=== PATIENT | male | born 1935 | race Caucasian/White ===

== ENCOUNTER → 2023-01-03 | Outpatient (CLI) | payer MEDICARE | END | disposition home or self-care (01) | LOC: RADCTMAIN 12:25 | PROVIDERS: ATTEND Surgery | DX: I71.43 Infrarenal abdominal aortic aneurysm, without rupture (principal) | CPT/HCPCS: 82565; 84520 ==

== ENCOUNTER → 2023-01-11 | Outpatient (CLI) | payer MEDICARE ==
--- NOTE | 2023-01-14 05:27 | PE ---
EXAMINATION TYPE: PET CT fusion skull to thigh DATE OF EXAM: 01/11/2023 COMPARISON: Outside Chest CT December 25, 2022 HISTORY: Solitary pulmonary nodule, abnormal CT. TECHNIQUE: Following the intravenous administration of 10.52 mCi of F-18 FDG, whole body images are performed from the skull base to the midthigh. Images are reviewed on the computer in the coronal, a xial, and sagittal planes. Reconstructed rotating images are created on independent workstation and reviewed on the computer. A localization and attenuation correction CT is performed in conjunction with the PET scan. Blood glucose level equals 140. SCAN: Initial Scan FINDINGS: SKULL BASE AND NECK: No areas of abnormal hypermetabolic uptake. CHEST, MEDIASTINUM, AND HILAR REGION: Moderate underlying emphysematous change is redemonstrated. Per sistent lobulated mass in the posterior aspect right upper lobe measuring 3.6 x 2.5 cm. Max SUV is 4. 65 on axial image 80. No additional abnormal hypermetabolic nodules or lymph nodes. Calcified right lower lobe nodules are benign granulomas with calcified right hilar lymph nodes are redemonstrated. ABDOMEN AND PELVIS: No hypermetabolic adrenal masses. Normal excretion. No areas of abnormal hypermet abolic uptake. OSSEOUS STRUCTURES: No areas of abnormal hypermetabolic uptake. OTHER CT: Mild calcified plaque bilateral carotid bulb level. Coronary artery calcification and/or st ents are redemonstrated. Cholecystectomy clips are seen. Large AAA measuring up to 7.0 cm in diameter axial image 159 without iliac artery extension is noted. IMPRESSION: 1. Background moderate emphysematous change with abnormal hypermetabolic uptake in the posterior righ t upper lobe lobulated mass consistent with neoplasm. No abnormal thoracic adenopathy or metastatic d isease seen. 2. There is focal AAA up to 7.0 cm in diameter transversely. Advise endovascular surgical referral.
== END | disposition home or self-care (01) ==
LOC: RADPETMAIN 08:45
PROVIDERS: ATTEND Internal Medicine Critical Care Medicine
DX: J43.9 Emphysema, unspecified (principal); I71.40 Abdominal aortic aneurysm, without rupture, unspecified; R91.8 Other nonspecific abnormal finding of lung field
CPT/HCPCS: 78815; A9552

== ENCOUNTER → 2023-01-21 | Outpatient (CLI) | payer MEDICARE ==
--- NOTE | 2023-01-21 18:48 | MR ---
EXAMINATION TYPE: MR abdomen wo/w con DATE OF EXAM: 01/21/2023 3:58 PM INDICATION: Patient age:Male; 87 years old; Reason for study: I71.43 INFRARENAL ABDOMINAL AORTIC ANEURYSM; Evaluate Infra-renal AAA, Shortness of Breath COMPARISON: CT scan abdomen from PET/CT 01/11/2023. TECHNIQUE: Multiplanar multi-sequence imaging was performed without contrast. Post contrast imaging was performed. IV Contrast: 8 cc Gadavist FINDINGS: Motion limited exam. LOWER CHEST: No gross irregularity. ABDOMEN Liver: Unremarkable. Gallbladder and Bile ducts: Unremarkable. Pancreas: Unremarkable. Spleen: Unremarkable. Adrenal glands: Unremarkable. Kidneys: No evidence of obstructive uropathy. Right cortical renal cyst. Stomach and Bowel: Unremarkable as visualized. Peritoneum: No evidence of pneumoperitoneum or free fluid. Vasculature: There is an infrarenal aortic aneurysm measuring up to 7.2 x 6.4 x 5.4 cm with draping o nora the vertebral bodies. This is similar in size to prior 01/11/2023. There is mural thrombus present . This displaces the inferior vena cava bilaterally. Renal arteries are patent. The common iliac zaheer cherise and external iliac arteries are patent. Musculoskeletal: The osseous structures appear intact. Lymph Nodes: No gross evidence for lymphadenopathy. Abdominal wall: Unremarkable. IMPRESSION: Infrarenal saccular abdominal aortic aneurysm measuring up to 7.2 cm further workup with vascular deb denise consultation is recommended. This does appear to drape over the vertebral bodies which can be se en as a sign of contained rupture and aortic wall deficiency.
== END | disposition home or self-care (01) ==
LOC: RADMRIMAIN 15:08
PROVIDERS: ATTEND Surgery
DX: I71.43 Infrarenal abdominal aortic aneurysm, without rupture (principal)
CPT/HCPCS: 74183; A9585

== ENCOUNTER 2023-01-31 10:51 | Day surgery (SDC) | payer MEDICARE ==
[2023-01-29 11:26] VITALS: BMI 28.5
[~2023-01-31 10:51] MED LIST: LACTATED RINGERS 1,000 ML IV SCH
--- NOTE | 2023-01-31 12:13 | CT ---
EXAMINATION TYPE: CT chest wo con DATE OF EXAM: 01/31/2023 COMPARISON: Outside Chest CT December 25, 2022 and outside PET/CT January 11, 2023 HISTORY: ion chest CT DLP: 544 mGycm. Automated Exposure Control for Dose Reduction was Utilized. TECHNIQUE: CT scan of the thorax is performed without IV contrast. Bronchoscopy protocol. FINDINGS: Exam is for bronchoscopy planning and not for diagnostic purposes. There is bilateral moderate to adv anced underlying emphysematous change that is redemonstrated. There is persistent suspicious spiculat ed 4.4 x 2.5 cm mass in the posterior right upper lobe series 4 image 128. 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 IMPRESSION: As above.
[2023-01-31] MEDS ORDERED: PROPOFOL 10 MG/ML 20 ML VIAL IV ONE (12:14)
[2023-01-31] MEDS ORDERED: fentaNYL (PF) 50 MCG/ML 2 ML AMP ONE (12:14)
[2023-01-31] MEDS ORDERED: SUCCINYLCHOLINE CHLORIDE 200 MG/10 ML VIAL IV ONE (12:14)
[2023-01-31] MEDS ORDERED: GLYCOPYRROLATE 0.2 MG/ML 2 ML VIAL ONE (12:14)
[2023-01-31] MEDS ORDERED: LIDOCAINE 2% INJ 20 MG/ML (2 ML VIAL) ONE (12:14)
[2023-01-31] MEDS ORDERED: PHENYLEPHRINE-0.9% NACL SYG 1,000 MCG/10 ML SYRINGE ONE (12:14)
[2023-01-31] MEDS ORDERED: IV FLUID CONTINUATION 1,000 ML IV ONE (13:39)
[2023-01-31 13:47] VITALS: TEMP 97.3
--- NOTE | 2023-01-31 13:50 | P.PCN ---
Date of Procedure: 01/31/23 Description of Procedure: Preoperative Diagnosis: Right upper lobe mass Mediastinal lymphadenopathy Postoperative Diagnosis: Right upper lobe mass Left paratracheal lymphadenopathy Procedure(s) Performed: Flexible bronchoscopy Robotic-assisted bronchoscopy and addition to radial ultrasound evaluation of the lung mass Robotic-assisted test monitor needle aspirate, transbronchial biopsies, transbronchial brushing of the right upper lobe mass in addition to a bronchioloalveolar lavage Endobronchial ultrasound Endobronchial ultrasound-guided transbronchial needle aspirate of station 4 L lymph node Anesthesia: LIANAA Surgeon: Catarino Bains Estimated Blood Loss (ml): 0 Pathology: other Condition: stable Disposition: same day Operative Findings: A physical exam was performed. Informed consent was obtained from the patient after explaining all the risks (pneumothorax, life threatening bleeding, infection and adverse effects due to medications), benefits and alternatives to the procedure which the patient appeared to understand and so stated. The patient was connected to the monitoring devices. General anesthesia was induced and the patient was intubated by anesthesia. A final timeout was performed and the procedure confirmed by the attending staff bronchoscopist. The bronchoscope was inserted and the airway examined. The flexible bronchoscope was removed and the robotic bronchoscope was inserted. Registration was completed. I next guided the robotic bronchoscope using the navigation system into the right upper lobe posterior segment segment. Once in proper position, the bronchoscope was frozen. The radial EBUS probe was placed through the bronchoscope and confirmed abnormal u/s images vs normal lung. A needle was placed through the working channel and under fluoroscopic guidance, we sampled the area thought to have the mass twice. We then used a cloud biopsy pattern with ultrasound confirmation for 4 additional passes with the needle. U/S evaluation was then used to reconfirm location. Forceps were next introduced through working channel and extended the appropriate distance and 3 transbronchial biopsies were performed using fluoroscopic guidance. The u/s probe was then reinserted to confirm location. When confirmed this process was repeated for a total of 6 transbronchial biopsies. After reassessment with EBUS, a brush was placed through the extendable working channel for 1 pass with fluoroscopic guidance. U/S evaluation was then used to confirm location. 20ml of saline was then instilled into the area of the lesion. The robotic bronchoscope was removed and the airway inspected with a flexible bronchoscope and 5 ml of effluent from the BAL was collected. The flexible bronchoscope was removed and the EBUS-TBNA bronchoscope was used to intubate the pateint through the ETT. An ultrasound examination identified all major landmarks was completed.. No significant mediastinal lymphadenopathy. All of the mediastinal lymph nodes less than 5 mm in size. There was a station 4Lmediastinal lymph node measuring 9 x 6 mm in size. The EBUS-TBNA scope was used to evaluate mediastinal lymph node. A station 4 L lymph node was identified via ultrasound and the shortest diameter was measured to be 9x6 mm. The corresponding available CT scan measurement was compared to EBUS image. The needle was then inserted and 2 passes were taken under direct ultrasonographic visualization. Each pass was maintained with good suction. The patient was then extubated with the EBUS-TBNA bronchoscope and intubated with an Olympus IT bronchoscope without difficutly. The airways were inspected and cleared of secretions and blood. Fluoroscopic check for pneumothorax was negative upon completion of the procedure. There was 0 ml blood loss with the procedure. FINDINGS: 1.The airways appeared normal 2 Successful navigation, ultrasonographic identification, and biopsies of right lower lobe mass 3.The EBUS view was (Concentric/Eccentric)}. - Stations sampled: 4L - the rest of stations not sampled due to small size RECOMMENDATIONS: Await pathology and cytology results The referring physician will be alerted to the results when available. The patient was advised to follow up with the referring physician with the biopsy results Patient will be called with results.
--- NOTE | 2023-01-31 14:26 | XR ---
EXAMINATION TYPE: XR chest 1V DATE OF EXAM: 01/31/2023 COMPARISON: NONE HISTORY: A bronchoscopy TECHNIQUE: Single frontal view of the chest is obtained. 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 There is a calcified granuloma in the right midlung. There is a vag ue area of consolidation or mass in the right suprahilar region. There is underlying COPD. No sizable pneumothorax. Underlying COPD and chronic interstitial lung disease suspected. Heart size normal. At herosclerotic change aorta. IMPRESSION: 1. Right upper lobe pulmonary mass corresponds to previous CT abnormality. No pneumothorax. 2. 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
[2023-01-31 14:36] VITALS: RESP 18
[2023-01-31 14:55] VITALS: BP 109/71; PULSE 83
--- NOTE | 2023-01-31 15:35 | FL ---
EXAMINATION TYPE: FL bronchoscopy DATE OF EXAM: 01/31/2023 COMPARISON: NONE HISTORY: Fluoroscopy TECHNIQUE: Fluoroscopy. FINDINGS: Fluoroscopic guidance was provided during. Total dose area product (DAP) in uGy*m?, mGy*cm ? (or similar): 7.1241. IMPRESSION: As Above.
== END 2023-01-31 15:11 | disposition home or self-care (01) ==
LOC: ORWHC2ENDO 10:51
PROVIDERS: ATTEND Internal Medicine Critical Care Medicine
DX: J98.4 Other disorders of lung (principal); I10 Essential (primary) hypertension; J43.9 Emphysema, unspecified; I71.40 Abdominal aortic aneurysm, without rupture, unspecified; Z87.891 Personal history of nicotine dependence; Z79.1 Long term (current) use of non-steroidal anti-inflammatories (NSAID); Z79.899 Other long term (current) drug therapy; Z88.0 Allergy status to penicillin
CPT/HCPCS: 31623; 31652; 88108; 88305; 88173; 71045; 71250; 31629; 31624; J0330; J3010; J2370; J2704; J2001; 31625

== ENCOUNTER → 2023-03-06 | Outpatient (CLI) | payer MEDICARE ==
[2023-03-06 14:21] LABS: INR 1.1 (<1.2); Partial Thromboplastin Time 24.2 sec (22.0-30.0); Prothrombin Time 11.1 sec (9.0-12.0)
[2023-03-06 19:48] LABS: ALT 13 U/L (10-49); AST 14 U/L (14-35); Albumin 4.6 d/dL (3.8-4.9); Alkaline Phosphatase 86 U/L (41-126); BUN/Creat Ratio 11.89 Ratio (12.00-20.00); Blood Urea Nitrogen 22.6 mg/dL (9.0-27.0); Calcium 9.5 mg/dL (8.7-10.3); Carbon Dioxide 28.3 mmol/L (21.6-31.8); Chloride 92 mmol/L (96-109); Globulin 2.7 d/dL (1.6-3.3); Glucose 109 mg/dL (70-110); Potassium 4.4 mmol/L (3.5-5.5); Sodium 133 mmol/L (135-145); Total Bilirubin 0.4 mg/dL (0.3-1.2); Total Protein 7.3 d/dL (6.2-8.2)
[2023-03-07 00:29] LABS: Basophils # (A) 0.06 X 10*3/uL (0.00-0.10); Basophils % (A) 0.7 %; Eosinophils # (A) 0.39 X 10*3/uL (0.04-0.35); Eosinophils % (A) 4.4 %; HCT 41.6 % (39.6-50.0); HGB 13.5 d/dL (12.0-15.0); Lymphocytes # (A) 1.97 X 10*3/uL (0.90-5.00); Lymphocytes % (A) 22.4 %; MCH 29.5 pg (27.0-32.0); MCHC 32.5 d/dL (32.0-37.0); MCV 90.8 FL (80.0-97.0); Mean Platelet Volume 10.5 FL (9.5-12.2); Monocytes # (A) 0.53 X 10*3/uL (0.20-1.00); NRBC Per 100 WBC 0 X 10*3/uL (0.00-0.01); Neutrophils % (A) 66.2 %; Platelet Count 274 X 10*3/uL (140-440); RBC 4.58 X 10*6/uL (4.40-5.60); RDW 12.1 % (11.5-14.5); WBC 8.78 X 10*3/uL (4.50-10.00)
== END | disposition home or self-care (01) ==
LOC: LABWHC1 11:53
PROVIDERS: ATTEND Internal Medicine Critical Care Medicine
DX: Z01.812 Encounter for preprocedural laboratory examination (principal); I71.40 Abdominal aortic aneurysm, without rupture, unspecified
CPT/HCPCS: 36415; 80053; 85025; 85610; 85730

== ENCOUNTER → 2023-03-11 | Outpatient (CLI) | payer MEDICARE ==
--- NOTE | 2023-03-11 14:51 | CA ---
Transthoracic Echo Report Name: Abel Hurst Age: 87 Gender: M : 1935 Exam Date: 03/11/2023 13:51 Exam Location: [facility] Ht (in): 66 Wt (lb): 168 Ordering Physician: Catarino Bains MD Attending/Referring Phys: Spool Sorter Essie Carlton RDCS Procedure CPT: Indications: I71.40 Cardiac Hx: Technical Quality: Fair Contrast 1: Total Dose (mL): Contrast 2: Total Dose (mL): MEASUREMENTS (Male / Female) Normal Values 2D ECHO LV Diastolic Diameter PLAX 5.1 cm 4.2 - 5.9 / 3.9 - 5.3 cm LV Systolic Diameter PLAX 2.9 cm IVS Diastolic Thickness 1.1 cm 0.6 - 1.0 / 0.6 - 0.9 cm LVPW Diastolic Thickness 0.9 cm 0.6 - 1.0 / 0.6 - 0.9 cm LV Relative Wall Thickness 0.4 RV Internal Dim ED PLAX 3.3 cm LA Volume 40.3 cm??? 18 - 58 / 22 - 52 cm??? M-MODE Aortic Root Diameter MM 3.4 cm LA Systolic Diameter MM 4.0 cm LA Ao Ratio MM 1.2 AV Cusp Separation MM 2.0 cm DOPPLER AV Peak Velocity 144.5 cm/s AV Peak Gradient 8.4 mmHg AV Mean Velocity 88.3 cm/s AV Mean Gradient 3.9 mmHg AV Velocity Time Integral 25.2 cm AI Peak Velocity 460.9 cm/s AI Peak Gradient 85.0 mmHg LVOT Peak Velocity 95.0 cm/s LVOT Peak Gradient 3.6 mmHg LVOT Velocity Time Integral 16.6 cm MV Area PHT 2.7 cm??? Mitral E Point Velocity 42.9 cm/s Mitral A Point Velocity 75.6 cm/s Mitral E to A Ratio 0.6 MV Deceleration Time 283.3 ms TR Peak Velocity 232.2 cm/s TR Peak Gradient 21.6 mmHg Right Ventricular Systolic Press 25.6 mmHg FINDINGS Left Ventricle Mildly increased septal wall thickness. Left ventricular cavity size normal. Normal left ventricular systolic function with no obvious regional wall motion abnormalities. Left ventricular ejection fraction is estimated at 55-60 %. Right Ventricle Normal right ventricular size and function. Right ventricular systolic pressure within normal limits. Right Atrium Normal right atrial size. Left Atrium Normal left atrial size. Mitral Valve Structurally normal mitral valve. Mild mitral regurgitation. Aortic Valve Trileaflet aortic valve. No aortic stenosis. Mild aortic regurgitation. Tricuspid Valve Structurally normal tricuspid valve. Mild tricuspid regurgitation. Pulmonic Valve Trace pulmonic regurgitation. Pericardium No pericardial effusion. Aorta Normal size aortic root and proximal ascending aorta. CONCLUSIONS Left ventricular ejection fraction 55-60% Mildly increased left ventricular wall thickness RVSP 25 Mild mitral regurgitation Mild aortic regurgitation No pericardial effusion Previewed by: Dr. Lucho Carlson DO (Electronically Signed) Final Date: 11 March 2023 14:50
== END | disposition home or self-care (01) ==
LOC: RADECHMAIN 13:46
PROVIDERS: ATTEND Internal Medicine Critical Care Medicine
DX: I08.0 Rheumatic disorders of both mitral and aortic valves (principal); I71.40 Abdominal aortic aneurysm, without rupture, unspecified
CPT/HCPCS: 93306

== ENCOUNTER 2023-03-18 09:10 | Inpatient (IN) | payer MEDICARE ==
[2023-03-14 12:02] VITALS: BMI 27.4
[~2023-03-18 09:10] MED LIST changes: +CLINDAMYCIN 900 MG in DEXTROSE 5% IN WATER 50 ML IVPB PRN; +DEXAMETHASONE SOD PHOSPHATE 4 MG/ML 1 ML VIAL IV ONE; +HYDROmorphone 0.5 MG/0.5 ML SYRINGE IVP PRN; -LACTATED RINGERS 1,000 ML IV SCH; +MIDAZOLAM 2 MG/2 ML VIAL IV PRN; +ONDANSETRON 4 MG/2 ML VIAL IVP ONE; +SODIUM CHLORIDE 0.9% 1,000 ML in EMPTY BAG 1 BAG IV ONE
[2023-03-18] MEDS ORDERED: LIDOCAINE 1% INJ 10MG/ML (20 ML MDV) ONE (10:30)
[2023-03-18] MEDS ORDERED: PHENYLEPHRINE-0.9% NACL SYG 1,000 MCG/10 ML SYRINGE ONE (10:58)
[2023-03-18] MEDS ORDERED: SUGAMMADEX SODIUM 200 MG/2 ML SDV IV ONE (10:58)
[2023-03-18] MEDS ORDERED: HEPARIN SODIUM,PORCINE 10,000 UNIT/ML 1 ML VIAL ONE (10:58)
[2023-03-18] MEDS ORDERED: ROCURONIUM 10 MG/ML (5 ML VIAL) IV ONE (10:58)
[2023-03-18] MEDS ORDERED: ePHEDrine 50 MG/ML 1 ML VIAL ONE (10:58)
[2023-03-18] MEDS ORDERED: PROTAMINE SULFATE 10 MG/ML 5 ML VIAL IV ONE ×2 (10:58→13:03)
[2023-03-18] MEDS ORDERED: PROPOFOL 10 MG/ML 20 ML VIAL IV ONE (10:58)
[2023-03-18] MEDS ORDERED: fentaNYL (PF) 50 MCG/ML 2 ML AMP ONE (10:58)
[2023-03-18] MEDS ORDERED: NALOXONE 0.4 MG/ML 1 ML VIAL IVP PRN (13:08)
--- NOTE | 2023-03-18 13:08 | P.OP ---
Description of Procedure: Date: 03-18-2023 Preoperative diagnosis: Asymptomatic Infrarenal 7.2 cm AAA Postoperative diagnosis: Same Procedure: 1. Percutaneous Endovascular aortic repair with [place] device. 2. Ultrasound-guided bilateral common femoral artery access 3. Intravascular ultrasound of the aorta, bilateral common iliac, inte rnal and external iliac arteries Surgeon: Yamini GUTHRIE Anesthesia: General Estimated blood loss: 30 mL Complications: None Condition: Stable Indications: 87-year-old gentleman who originally presented to the office secondary to large infrarenal saccular AAA we will also was recently diagnosed with lung cancer. He is currently being treated for his lung cancer with chemotherapy and after discussion with his track repair person oncologist as well as the patient and his family it was felt to be prudent to repair his saccular aneurysm. He presents today for such repair. Operative narrative: After written and informed consent was obtained from the patient all risks benefits and complications were described the patient was brought to the Medical Laboratory Manager and laid in a supine position. The area of the groins were prepped and draped in usual sterile fashion after appropriate anesthetic was performed per the anesthesiologist. A timeout was performed in normal fashion and antibiotics were administered prior to incisions. Utilizing ultrasound bilateral common femoral arteries were visualized demonstrating patency with minimal calcification. Under ultrasound guidance utilizing a multipurpose needle bilateral common femoral arteries were accessed and guidewire was placed followed by deployment of 2 Perclose closure devices for each femoral artery. Utilizing Seldinger technique and 8-Burkinan sheath was then placed and patient was administered heparin and followed with ACTs. 035 Glidewire was then placed up the right femoral sheath and exchanged for a Lunderquist wire through an angled glide catheter. The left femoral artery was then utilized and guidewire was placed followed by pigtail catheter and aortogram was obtained. An IVUS catheter was then placed due to his significant renal disease in order to use less contrast. The IVUS was placed up the right sheath and intravascular images were obtained with measurements documented in the chart. Once completed a main body was chosen. Utilizing the Lunderquist wire a 29 mm main body device was then loaded over the guidewire after the 8- Burkinan sheath was removed. Delivery system was then placed 1 cm proximal to the intended landing site and the aortic body was oriented for appropriate access for the contralateral limb. Delivery system was then retracted out of the sheath and the aortic body radiopaque markers were verified to be in the correct position. First segment of the graft was then deployed in normal fashion by releasing and pulling the knob in normal fashion. Balloon injection port was then inflated utilizing a 4-1 saline contrast mixture in order to open the mid crown. Balloon was then deflated. Precise positioning was then performed with utilizing the radiopaque markers and parallax was removed and our to land at the renal arteries. Pigtail catheter was then retracted away from the proximal stent and the proximal stent was released in normal fashion. Polymer was then utilized and filled through the polymer port which was visualized under fluoroscopy. The stiff Lunderquist wire was then retracted within the ipsilateral limb. Attention was then placed to accessing the contralateral limb. Utilizing the Glidewire and angled glide catheter the contralateral limb was accessed and pigtail catheter was placed. Pigtail catheter was then spun to verify intragraft cannulation. A stiff wire was then placed within the pigtail catheter and retrograde angiogram was obtained demonstrating the internal iliac artery takeoff. Measurements were obtained and a 12 x 140 mm Ovation limb was chosen to be deployed and deployed in normal fashion. Once completed the aortic main body was completely deployed in normal fashion. Utilizing the balloon balloon angioplasty was performed at the ring to further mold the polymer to the aortic neck. Once completed the aortic body deployment sheath was removed in normal fashion. Pigtail catheter was then placed over the Lunderquist wire and retrograde angiogram was obtained with measurements to the internal iliac artery on the ipsilateral limb. A 12 x 160 mm Ovation limb was chosen and deployed in normal fashion. Once completed two 12 x 40mm balloons were placed up each iliac limb and balloon angioplasty was performed through its entirety. Once completed balloons were removed and pigtail catheter was placed above the graft and final angiogram was obtained demonstrating exclusion of the aneurysm with no evidence of endoleak's. All guidewires and catheters were then removed and the Perclose closure devices were closed in normal fashion. The areas were then cleansed and dressings were placed. The patient tolerated procedure well and had palpable DP pulses and was sent to PACU for recovery.
[2023-03-18] MEDS ORDERED: SODIUM CHLORIDE 0.9% 1,000 ML IV ONE ×4 (13:19→14:44)
[2023-03-18 13:48] LABS: Basophils % (A) 0 %; Eosinophils # (A) 0.4 k/uL (0-0.7); Eosinophils % (A) 6 %; HCT 35.9 % (39.0-53.0); HGB 12.4 gm/dL (13.0-17.5); Lymphocytes # (A) 1.1 k/uL (1.0-4.8); Lymphocytes % (A) 16 %; MCHC 34.5 g/dL (31.0-37.0); MCV 89.6 fL (80.0-100.0); Mean Platelet Volume 7.6; Monocytes # (A) 0.4 k/uL (0-1.0); Monocytes % (A) 5 %; Neutrophils % (A) 71 %; Platelet Count 220 k/uL (150-450); RBC 4.01 m/uL (4.30-5.90); RDW 12.1 % (11.5-15.5); WBC 6.9 k/uL (3.8-10.6)
[2023-03-18 13:58] LABS: African American GFR (CKD) 39 (>60 ml/min/1.73 sqM); Anion Gap 9 mmol/L; Blood Urea Nitrogen 26 mg/dL (9-20); Calcium 8.5 mg/dL (8.4-10.2); Carbon Dioxide 23 mmol/L (22-30); Chloride 103 mmol/L (98-107); Glucose 106 mg/dL (74-99); Non-African American GFR(CKD) 34 (>60 ml/min/1.73 sqM); Potassium 3.7 mmol/L (3.5-5.1); Sodium 135 mmol/L (137-145)
[2023-03-18 14:15] LABS: Glucose,Whole Blood 102 mg/dL (70-110)
[2023-03-18] MEDS: SODIUM CHLORIDE 0.9% 1,000 ML in EMPTY BAG 1 BAG IV SCH (15:29)
[2023-03-18] MEDS: LACTATED RINGERS 1,000 ML IV SCH (15:29)
[2023-03-18] MEDS ORDERED: PANTOPRAZOLE 40 MG/10 ML VIAL IVP ONE (17:42)
[2023-03-18] MEDS: CALCIUM CARBONATE 500 MG CHEWABLE PO PRN (21:58)
--- NOTE | 2023-03-18 22:44 | IR ---
EXAMINATION TYPE: IR stent intravas non coronary DATE OF EXAM: 03/18/2023 CLINICAL HISTORY: AAA. TECHNIQUE: Fluoroscopy. COMPARISON: None. FINDINGS: Fluoroscopic guidance was provided during AAA treatment procedure performed by Dr. Kc . A total of 20 minutes 30 seconds of fluoroscopic time was utilized during the procedure and 1272 s pot images was acquired. Please refer to procedure note for further details. TOTAL DAP = 35.3 Gy x cm2 IMPRESSION: As Above.
[2023-03-19] MEDS: CALCIUM CARBONATE 500 MG CHEWABLE PO PRN ×2 (05:10→11:30)
[2023-03-19] MEDS ORDERED: PANTOPRAZOLE 40 MG TABLET PO SCH (07:30)
[2023-03-19 08:24] LABS: African American GFR (CKD) 45 (>60 ml/min/1.73 sqM); Non-African American GFR(CKD) 39 (>60 ml/min/1.73 sqM)
[2023-03-19] MEDS ORDERED: ONDANSETRON 4 MG/2 ML VIAL IVP PRN (08:35)
[2023-03-19] MEDS: ASPIRIN 81 MG PO SCH (08:57)
[2023-03-19] MEDS: LOSARTAN 25 MG TAB PO SCH (08:57)
[2023-03-19] MEDS: SODIUM CHLORIDE 0.9% 1,000 ML in EMPTY BAG 1 BAG IV SCH ×2 (08:57→14:38)
[2023-03-19 09:20] LABS: HCT 35.9 % (39.0-53.0); MCH 29.8 pg (25.0-35.0); MCHC 33.3 g/dL (31.0-37.0); MCV 89.3 fL (80.0-100.0); Mean Platelet Volume 7.8; Platelet Count 205 k/uL (150-450); RBC 4.02 m/uL (4.30-5.90); RDW 12.5 % (11.5-15.5); WBC 10.4 k/uL (3.8-10.6)
[2023-03-19] MEDS: LACTATED RINGERS 1,000 ML IV SCH (10:12)
--- NOTE | 2023-03-19 12:08 | P.PN ---
Subjective Progress Note Date: 03/19/23 Principal diagnosis: Abdominal aortic aneurysm post EVAR Patient seen and examined today is postop day #1 for percutaneous endovascular aortic aneurysm repair. Patient is stating that time he is having a lot of heartburn which is causing some nausea. He only ate a few bites of dinner last night and then he had significant heartburn. He is without any other complaints. No shortness of breath or chest pain. Patient is afebrile. He states he is passing gas but has not had a bowel movement. Objective - Vital Signs Vital signs: Vital Signs Temp 97.5 F L 03/19/23 08:55 Pulse 80 03/19/23 08:55 Resp 15 03/19/23 08:55 BP 125/71 03/19/23 08:55 Pulse Ox 100 03/19/23 08:55 FiO2 Intake & Output 03/18/23 03/19/23 03/19/23 18:59 06:59 18:59 Intake Total 2115 Output Total 700 Balance 2115 -700 Weight 72 kg Intake: IV 1225 Intake, IV Titration 240 Amount Sodium Chloride 0.9% 1, 240 000 ml In Empty Bag 1 bag @ 80 mls/hr IV .[id number] [facility] Rx#:[id number] Oral 650 Output: Urine 700 Other: Voiding Method Urinal # Voids 2 - Exam General appearance: The patient is alert, oriented, appears in no acute distress. HET: Head is normocephalic and atraumatic. Pupils are equal and reactive. Neck: Supple. Heart: Regular. Lungs: Equal expansion, normal respiratory effort. Abdomen: Soft, nontender, nondistended. Extremities: Normal skin color and turgor. Bilateral groins without any hematoma, no bleeding from access site. Bilateral palpable DP pulses. Neurological: No focal deficits. Strength and sensation are grossly intact. - Labs CBC & Chem 7: 03/19/23 07:41 03/19/23 07:41 Labs: Abnormal Lab Results - Last 24 Hours (Table) 03/18/23 03/18/23 03/19/23 Range/Units 13:35 13:35 07:41 RBC 4.01 L (4.30-5.90) m/uL Hgb 12.4 L (13.0-17.5) gm/dL Hct 35.9 L (39.0-53.0) % Sodium 135 L (137-145) mmol/L BUN 26 H (9-20) mg/dL Creatinine 1.80 H 1.60 H (0.66-1.25) mg/dL Glucose 106 H (74-99) mg/dL Assessment and Plan Assessment: 1. Asymptomatic infrarenal 7.2 cm abdominal aortic aneurysm status post percutaneous endovascular aortic repair 2. Lung cancer 3. COPD Plan: 1. Encourage ambulation 2. Increase Protonix to 40 mg twice a day 3. Zofran added as needed 4. Continue Tums as needed 5. Internal medicine consulted for medical management 6. Anticipate discharge in the next 24-48 hours The impression and plan of care has been dictated as directed. I performed a history and examination of this patient, discussed the same with the dictator. I agree with the dictator's note ,documented as a scribe. Any additional findings or plans will be noted.
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
[2023-03-19] MEDS ORDERED: ACETAMINOPHEN TAB 325 MG TAB PO PRN (14:28)
--- NOTE | 2023-03-19 16:00 | US ---
EXAMINATION TYPE: US kidneys/renal and bladder DATE OF EXAM: 03/19/2023 COMPARISON: NONE CLINICAL INDICATION: Male, 87 years old with history of Laila; LAILA EXAM MEASUREMENTS: Right Kidney: 9.8 x 4.3 x 4.2 cm Left Kidney: 10.7 x 4.8 x 4.9 cm Right Kidney: no evidence of hydronephrosis Left Kidney: no evidence of hydronephrosis Bladder: wnl Bilateral Jets seen: no There is no evidence for hydronephrosis at this point in time. No nephrolithiasis is seen. No joe s are identified. The urinary bladder is anechoic. Bilateral ureteral jets are seen. Cortical medul tray differentiation is felt to be maintained. IMPRESSION: No evidence for obstructive uropathy. Cortical medullary differentiation is felt to be maintained.
[2023-03-19] MEDS: PANTOPRAZOLE 40 MG TABLET PO SCH (17:15)
[2023-03-20] MEDS: PANTOPRAZOLE 40 MG TABLET PO SCH (06:22)
[2023-03-20] MEDS: SODIUM CHLORIDE 0.9% 1,000 ML in EMPTY BAG 1 BAG IV SCH (07:36)
[2023-03-20] MEDS: LACTATED RINGERS 1,000 ML IV SCH (07:36)
[2023-03-20 08:12] VITALS: RESP 18; TEMP 98.1
[2023-03-20] MEDS: ASPIRIN 81 MG PO SCH (08:12)
[2023-03-20] MEDS: LOSARTAN 25 MG TAB PO SCH (08:12)
--- NOTE | 2023-03-20 11:54 | P.DS ---
Providers Date of admission: 03/18/23 09:10 Expected date of discharge: 03/20/23 Attending physician: Anthony Kc DO Consults: 03/18/23 07:09 Consult to Anesthesia Routine Consulting Provider: Anesthesia,Services Consult Reason/Comments: General anesthesia for Aortic Stent procedure 03/18/23 13:11 Consult Physician Routine Consulting Provider: Tom Conde Consult Reason/Comments: medical management Do you want consulting provider notified?: Yes 03/19/23 11:33 Consult Physician Routine Consulting Provider: Mary Khan Consult Reason/Comments: medical management post EVAR Do you want consulting provider notified?: Yes Primary care physician: Tom [facility] Course: 87-year-old male who was recently diagnosed with lung cancer and found to have a large infrarenal saccular abdominal aortic aneurysm was scheduled for abdominal aortic aneurysm repair. He is postop day #2 for percutaneous endovascular aortic repair. Patient has been up ambulating, Brandt catheter was discontinued he is voiding without any difficulty. He is passing gas. The first day postop he had some acid reflux but that has resolved and he is tolerating his diet. Vital signs have been stable, he has been afebrile. Medical team following patient and recommended holding his losartan due to kidney function. Patient has underlying chronic kidney disease. Plan is for discharge this afternoon. Exam General appearance: The patient is alert, oriented, appears in no acute distress. HET: Head is normocephalic and atraumatic. Pupils are equal and reactive. Neck: Supple. Heart: Regular. Lungs: Equal expansion, normal respiratory effort. Abdomen: Soft, nontender, nondistended. Extremities: Normal skin color and turgor. Bilateral groins access sites without any hematoma or bleeding. Palpable bilateral DP pulses. Neurological: No focal deficits. Strength and sensation are grossly intact. Assessment 1. Postop day #2 percutaneous endovascular aortic repair with alto device for Asymptomatic infrarenal 7.2 cm AAA 2. Lung cancer 3. COPD Plan Discussed with patient plan for discharge this afternoon. Patient has home care set up from the office. Continue to encourage ambulation. Primary medical team recommending holding losartan. Patient to follow-up with his PCP Dr. Conde in the next 1-2 days. Discharge instructions discussed with patient. The impression and plan of care has been dictated as directed. Dr. Brandt I performed a history and examination of this patient, discussed the same with the dictator. I agree with the dictator's note ,documented as a scribe. Any additional findings or plans will be noted. Procedures: Procedure: 1. Percutaneous Endovascular aortic repair with Valliant device. 2. Ultrasound-guided bilateral common femoral artery access 3. Intravascular ultrasound of the aorta, bilateral common iliac, internal and external iliac arteries Patient Condition at Discharge: Stable Plan - Discharge Summary Discharge Rx Participant: No New Discharge Prescriptions: New Aspirin 81 mg PO DAILY tab Acetaminophen Tab [Tylenol] 650 mg PO Q6HR PRN tab PRN Reason: Fever And/ Or Pain Continue Celecoxib [CeleBREX] 200 mg PO DAILY No Action Losartan [Cozaar] 25 mg PO QAM Discharge Medication List Celecoxib [CeleBREX] 200 mg PO DAILY 01/29/23 [History] Losartan [Cozaar] 25 mg PO QAM 01/29/23 [History] Acetaminophen Tab [Tylenol] 650 mg PO Q6HR PRN tab 03/20/23 [Rx] Aspirin 81 mg PO DAILY tab 03/20/23 [Rx] Follow up Appointment(s)/Referral(s): Anthony Kc DO [STAFF PHYSICIAN] - 2 Weeks Tom Conde DO [Primary Care Provider] - 1-2 Days (discuss resuming losartan and recheck kidney function) Patient Instructions/Handouts: Endovascular Aneurysm Repair of Abdominal Aorta (DC) Activity/Diet/Wound Care/Special Instructions: No strenuous activity or heavy lifting greater than 5-10 pounds until cleared by vascular surgeon May showerno soaking or tub baths Monitor access sites for bleeding, hematoma, drainage. If having bleeding, apply pressure call vascular office or go to the emergency room. Monitor for infection, temperature greater than 100.4. Do not drive for 24-48 hours Discharge Disposition: HOME WITH HOME HEALTH SERVICES
[2023-03-20 12:44] VITALS: BP 114/59; PULSE 90
--- NOTE | 2023-03-20 13:04 | P.PN ---
Subjective Progress Note Date: 03/20/23 This is an 87 year old male who is evaluated today postoperative day #2 endovascular repair of abdominal aortic aneurysm. Patients creatinine elevated this admission at 1.9 and currently down to 1.6. Blood pressure has been on the lower side at 114/59 and recommending to hold losartan on discharge. This was discussed with and patient at the bedside. recommending to monitor blood pressure at home and also follow up with labs in 2 to 3 days. Patient has been urinating without difficulty and abdominal bladder US negative for obstructive uropathy. Patient to be discharged home. Review of Systems Constitutional: Denied any fatigue denied any fever. Cardio vascular: denied any chest pain, palpitations Gastrointestinal: denied any nausea, vomiting, diarrhea Pulmonary: Denied any shortness of breath cough Neurologic denied any new focal deficits All inpatient medications were reviewed and appropriate changes in these medications as dictated in the interval history and assessment and plan. PHYSICAL EXAMINATION: GENERAL: The patient is alert and oriented x3, not in any acute distress. Well developed, well nourished. HEENT: Pupils are round and equally reacting to light. EOMI. No scleral icterus. No conjunctival pallor. Normocephalic, atraumatic. No pharyngeal erythema. No thyromegaly. CARDIOVASCULAR: S1 and S2 present. No murmurs, rubs, or gallops. PULMONARY: Chest is clear to auscultation, no wheezing or crackles. ABDOMEN: Soft, nontender, nondistended, normoactive bowel sounds. No palpable organomegaly. Bilateral groin site no hematoma, they are soft and approximated. MUSCULOSKELETAL: No joint swelling or deformity. EXTREMITIES: No cyanosis, clubbing, or pedal edema. Positive pedal pulses. NEUROLOGICAL: Gross neurological examination did not reveal any focal deficits. SKIN: No rashes. Assessment Aortic aneurysm status post for percutaneous endovascular aortic aneurysm repair. Hypertension currently normotensive Acute kidney injury underlying CKD, prerenal due to low blood pressures and medication affect patient has been maintained on losartan o.p and recommending to hold at this time. History right lung cancer completed radiation Hx COPD with no acute exacerbation Former smoker GI prophylaxis DVT prophylaxis as per primary Full Code Plan Cleared medically for DC patient to follow up with PCP in the office in 1 to 2 days and repeat labs. Follow up with vascular surgery as recommended. Hold losartan on discharge and monitor at home daily and keep log for follow up with PCP. Per vascular surgery no strenuous activity or heavy lifting greater than 5 to 10 lbs until cleared on follow up. No driving 24 to 48 hours. The impression and plan of care has been dictated by Elizabeth Pa, Nurse Practitioner as directed. Dr. Pankaj MD I have performed a history and physical examination and medical decision making of this patient, discussed the same with the dictator, and agree with the dictators assessment and plan as written, documented as a scribe. Based on total visit time, I have performed more than 50% of this visit. Objective - Vital Signs Vital signs: Vital Signs Temp 98.1 F 03/20/23 08:11 Pulse 90 03/20/23 12:43 Resp 18 03/20/23 08:11 BP 114/59 03/20/23 12:43 Pulse Ox 95 03/20/23 12:43 FiO2 Intake & Output 03/19/23 03/20/23 03/20/23 18:59 06:59 18:59 Intake Total 118 540 118 Output Total 700 600 347 Balance -582 -60 -229 Intake: Oral 118 540 118 Output: Urine 700 600 300 Post Void Residual 47 Other: Voiding Method Urinal Urinal Urinal # Voids 2 1 - Labs CBC & Chem 7: 03/19/23 07:41 03/19/23 07:41 Assessment and Plan Time with Patient: Less than 30
== END 2023-03-20 13:24 | disposition home health service (06) | DRG 269 ==
LOC: 2ORMAIN 09:10 → 3SCARD 14:16
PROVIDERS: ADMIT Surgery; ATTEND Surgery
PROC: DB0 Radiation Therapy, Respiratory System, Beam Radiation (ICD-10-PCS; 2023-03-18)
PROC: 04V03DZ Restriction of Abdominal Aorta with Intraluminal Device, Percutaneous Approach (ICD-10-PCS; principal; 2023-03-18 11:00)
PROC: B41DZZZ Fluoroscopy of Aorta and Bilateral Lower Extremity Arteries (ICD-10-PCS; 2023-03-18 11:00)
PROC: B24BZZ3 Ultrasonography of Heart with Aorta, Intravascular (ICD-10-PCS; 2023-03-18 11:00)
DX: I71.40 Abdominal aortic aneurysm, without rupture, unspecified (principal); C34.91 Malignant neoplasm of unspecified part of right bronchus or lung; N17.9 Acute kidney failure, unspecified; J44.9 Chronic obstructive pulmonary disease, unspecified; I12.9 Hypertensive chronic kidney disease with stage 1 through stage 4 chronic kidney disease, or unspecified chronic kidney disease; N18.9 Chronic kidney disease, unspecified; H91.90 Unspecified hearing loss, unspecified ear; K21.9 Gastro-esophageal reflux disease without esophagitis; R11.0 Nausea; R03.1 Nonspecific low blood-pressure reading; Z87.891 Personal history of nicotine dependence; Z79.1 Long term (current) use of non-steroidal anti-inflammatories (NSAID); Z88.0 Allergy status to penicillin; Z80.9 Family history of malignant neoplasm, unspecified
CPT/HCPCS: 34705; 37252; 37253; 76770; 77373; 80048; 82565; 85025; 85027; 86850; 86900; 86901

== ENCOUNTER → 2023-04-17 | Outpatient (CLI) | payer MEDICARE ==
[2023-04-17 15:08] LABS: African American GFR (CKD) 37 (>60 ml/min/1.73 sqM); Blood Urea Nitrogen 20 mg/dL (9-20); Non-African American GFR(CKD) 32 (>60 ml/min/1.73 sqM)
== END | disposition home or self-care (01) ==
LOC: RADCTMAIN 14:12
PROVIDERS: ATTEND Surgery
DX: Z53.9 Procedure and treatment not carried out, unspecified reason (principal)
CPT/HCPCS: 82565; 84520

== ENCOUNTER → 2023-05-09 | Outpatient (CLI) | payer MEDICARE ==
--- NOTE | 2023-05-10 10:23 | CT ---
EXAMINATION TYPE: CT angio abdomen pelvis CT DLP: 768.8 mGycm, Automated exposure control for dose reduction was used. DATE OF EXAM: 05/09/2023 4:56 PM COMPARISON: Pet/CT 01/11/2023, CT 01/31/2023 CLINICAL INDICATION:Male, 87 years old with history of I71.4 AAA;, AAA TECHNIQUE: Multiple thin slice sub-millimeter images were obtained through the abdomen, pelvis, after administration of contrast. 3-D reconstructed images and maximum intensity projection images were o btained of the abdomen, pelvis, and lower extremities. CT Contrast: Contrast used:80ml mL of Isovue 370 without and with IV Contrast, Oral contrast used: without Oral Contrast None FINDINGS: CTA Abdomen and pelvis: Noncontrast imaging demonstrated no evidence for intramural hematoma. Aortic stent graft at the level of the upper abdomen. The celiac axis, superior mesenteric artery and bilate ral renal arteries are patent. There is a gap between the aortic stent graft and the aortobiiliac florentino nt graft which is approximately 3.1 cm with a portion of the saccular aneurysm measuring 6.4 x 5.5 cm which is part of the aorta does not have a stent grafts. No evidence for contrast within the saccula r aneurysm suggesting thrombus within the saccular aneurysm. The biiliac stent graft which appears pa tent. The external and common iliac arteries are patent. Inferior mesenteric artery is patent LOWER CHEST: No evidence of focal consolidation, pneumothorax or pleural effusion. LIVER: Unremarkable GALLBLADDER AND BILE DUCTS: The gallbladder surgically absent. PANCREAS: Unremarkable. SPLEEN: Unremarkable. ADRENAL GLANDS: Unremarkable. KIDNEYS AND URETERS: No evidence of hydronephrosis or renal calculus. The ureters are unremarkable. PELVIS BLADDER: Unremarkable REPRODUCTIVE: Unremarkable. ABDOMEN & PELVIS STOMACH AND BOWEL: No evidence of bowel obstruction. PERITONEUM: No evidence of pneumoperitoneum or free fluid. 7MUSCULOSKELETAL: No acute osseous abnormalities LYMPH NODES: No gross evidence for lymphadenopathy. SOFT TISSUE/ABDOMINAL WALL: Unremarkable IMPRESSION 1. Upper abdominal stent grafts with the major vessels of the aorta patent. There is short segment o f [place] aorta with a portion of saccular aneurysm measuring up to 6.4 cm with mural thrombus. Within the middle of the saccular aneurysm is the start of the biiliac stent grafts which appear patent. 2. Colonic diverticulosis.
== END | disposition home or self-care (01) ==
LOC: RADCTMAIN 12:21
PROVIDERS: ATTEND Surgery
DX: I71.40 Abdominal aortic aneurysm, without rupture, unspecified (principal); K57.30 Diverticulosis of large intestine without perforation or abscess without bleeding
CPT/HCPCS: 74174; Q9967

== ENCOUNTER → 2023-05-09 | Outpatient (CLI) | payer MEDICARE ==
[~2023-05-09] MED LIST changes: -CLINDAMYCIN 900 MG in DEXTROSE 5% IN WATER 50 ML IVPB PRN; -DEXAMETHASONE SOD PHOSPHATE 4 MG/ML 1 ML VIAL IV ONE; -HYDROmorphone 0.5 MG/0.5 ML SYRINGE IVP PRN; -MIDAZOLAM 2 MG/2 ML VIAL IV PRN; -ONDANSETRON 4 MG/2 ML VIAL IVP ONE; +SODIUM CHLORIDE 0.9% 1,000 ML IV ONE; -SODIUM CHLORIDE 0.9% 1,000 ML in EMPTY BAG 1 BAG IV ONE; +SODIUM CHLORIDE 0.9% 500 ML 500 ML in EMPTY BAG 1 BAG IV PRN
[2023-05-09 13:33] VITALS: BP 190/80; PULSE 73; RESP 16
[2023-05-09 15:44] LABS: African American GFR (CKD) 50 (>60 ml/min/1.73 sqM); Non-African American GFR(CKD) 43 (>60 ml/min/1.73 sqM)
== END ==
LOC: PROCWHC3 13:22
PROVIDERS: ATTEND Surgery
DX: I71.40 Abdominal aortic aneurysm, without rupture, unspecified (principal)
CPT/HCPCS: 82565; 84520; 96360

== ENCOUNTER 2023-05-23 10:14 | Emergency (ER) | payer MEDICARE ==
[2023-05-23 10:35] VITALS: RESP 18
--- NOTE | 2023-05-23 11:13 | ED ---
General Adult HPI - General Chief complaint: Dizziness Stated complaint: dizzy Time Seen by Provider: 05/23/23 10:45 Source: patient, RN notes reviewed, old records reviewed Mode of arrival: ambulatory Limitations: no limitations - History of Present Illness Initial comments: This is an 87-year-old male who presents emergency Department complaining of d izziness. Patient states she woke up this morning and was dizzy and found it hard to walk and he thought he might fall over. Patient also complains of fairly severe headache this morning that has since subsided. Patient denies any numbness or weakness. Patient states moving his head does appear to make the dizziness worse. Patient denies any injury or trauma. Patient states when he went to bed last night he did not have any of this dizziness. Patient denies chest pain difficulty breathing shortness of breath. Patient denies any nausea vomiting diarrhea. Patient denies any other complaints at this time - Related Data Home Medications Medication Instructions Recorded Confirmed Celecoxib [CeleBREX] 200 mg PO DAILY 01/29/23 05/23/23 Previous Rx's Medication Instructions Recorded Famotidine [Pepcid] 20 mg PO DAILY #30 tablet 03/20/23 Allergies Allergy/AdvReac Type Severity Reaction Status Date / Time Penicillins Allergy Rash/Hives-50-60 Verified 05/23/23 11:19 yrs ago, never had since then. Review of Systems ROS Statement: Those systems with pertinent positive or pertinent negative responses have been documented in the HPI. ROS Other: All systems not noted in ROS Statement are negative. Past Medical History Past Medical History: Hearing Disorder / Deafness, Hypertension, Prostate Disorder Additional Past Medical History / Comment(s): SOB with exertion. Hard of hearing. Varicose veins. History of Any Multi-Drug Resistant Organisms: None Reported Past Surgical History: Prostate Surgery Additional Past Surgical History / Comment(s): "Surgery to cut back rib" aortic stent placed 2022. d Past Anesthesia/Blood Transfusion Reactions: No Reported Reaction Additional Past Anesthesia/Blood Transfusion Reaction / Comment(s): no hx blood transfusion Past Psychological History: No Psychological Hx Reported Smoking Status: Former smoker Past Alcohol Use History: None Reported Past Drug Use History: None Reported - Past Family History Sister(s) Family Medical History: Cancer Brother(s) Family Medical History: Cancer General Exam - General Exam Comments Initial Comments: GENERAL: Patient is well-developed and well-nourished. Patient is nontoxic and well- hydrated and is in mild distress. ENT: Neck is soft and supple. No significant lymphadenopathy is noted. Oropharynx is clear. Moist mucous membranes. Neck has full range of motion without eliciting any pain. EYES: The sclera were anicteric and conjunctiva were pink and moist. Extraocular movements were intact and pupils were equal round and reactive to light. Eyelids were unremarkable. PULMONARY: Unlabored respirations. Good breath sounds bilaterally. No audible rales rhonchi or wheezing was noted. CARDIOVASCULAR: There is a regular rate and rhythm without any murmurs gallops or rubs. ABDOMEN: Soft and nontender with normal bowel sounds. SKIN: Skin is clear with no lesions or rashes and otherwise unremarkable. NEUROLOGIC: Patient is alert and oriented x3. Cranial nerves II through XII are grossly intact. Motor and sensory are also intact. Normal speech, volume and content. Symmetrical smile. Finger to nose testing is slightly off but the right hand MUSCULOSKELETAL: Normal extremities with adequate strength and full range of motion. No lower extremity swelling or edema. No calf tenderness. LYMPHATICS: No significant lymphadenopathy is noted PSYCHIATRIC: Normal psychiatric evaluation. Limitations: no limitations Course Vital Signs 05/23/23 05/23/23 05/23/23 10:30 10:35 10:48 Temperature 98 F 97.5 F L Pulse Rate 52 L 56 L 54 L Respiratory 18 18 18 Rate Blood Pressure 181/86 153/75 O2 Sat by Pulse 98 95 95 Oximetry 05/23/23 05/23/23 11:00 11:42 Temperature 98.3 F Pulse Rate 63 60 Respiratory 12 18 Rate Blood Pressure 173/82 153/75 O2 Sat by Pulse 96 Oximetry Medical Decision Making - Medical Decision Making EKG was interpreted by myself shows a sinus bradycardia 52 bpm GA interval 158 QRSs 141 Q-T intervals 420 QTC is 411. Patient's EKG shows no ST segment elevation or depression. Was pt. sent in by a medical professional or institution ([facility], CAR CHASER, urgent care, hospital, or correction...) When possible be specific @ -[No] Did you speak to anyone other than the patient for history (EMS, parent, family, police, friend...)? What history was obtained from this source @ -Patient's gave quite a bit of the history. Did you review nursing and triage notes (agree or disagree)? Why? @ -[I reviewed and agree with nursing and triage notes] Were old charts reviewed (outside hosp., previous admission, EMS record, old EKG, old radiological studies, urgent care reports/EKG's, correction records)? Report findings @ -[No old charts were reviewed] Differential Diagnosis (chest pain, altered mental status, abdominal pain women, abdominal pain men, vaginal bleeding, weakness, fever, dyspnea, syncope, headache, dizziness, GI bleed, back pain, seizure, CVA, palpatations, mental health, musculoskeletal)? @ -Differential Dizziness: Benign paroxysmal positional Vertigo, Menieres disease, otitis media, acoustic neuroma, vertebrobasilar insufficiency, cerebellar stroke, encephalitis, hypovolemic, arrhythmia, coronary artery syndrome, anemia, this is not meant to be an all-inclusive list Differential Headache: Migraine, tension, cluster, carbon monoxide, central venous thrombosis, pension karma temporal arteritis, acute closure glaucoma, intercranial hemorrhage, mastoiditis, sinusitis, head injury, this is not meant to be an all-inclusive list. EKG interpreted by me (3pts min.). @ -[As above] X-rays interpreted by me (1pt min.). @ -Chest x-ray shows no acute abnormality. CT interpreted by me (1pt min.). @ -CT of the brain shows an inner parenchymal hemorrhage in the left occipital region there is no shift U/S interpreted by me (1pt. min.). @ -[None done] What testing was considered but not performed or refused? (CT, X-rays, U/S, labs)? Why? @ -[None] What meds were considered but not given or refused? Why? @ -[None] Did you discuss the management of the patient with other professionals (professionals i.e. , PA, CAR CHASER, lab, RT, psych nurse, social sciences lecturer, protective services social worker, teacher, civil preparedness officer, shoe caser)? Give summary @ -I spoke with the neuro interventional is Dr. Hernandez and he agreed to see the patient and the patient be transferred to [facility]. I spoke with the ER physician at that facility and she accepted the transfer Was smoking cessation discussed for >3mins.? @ -[No] Was critical care preformed (if so, how long)? @ -35 minutes Were there social determinants of health that impacted care today? How? (Homelessness, low income, unemployed, alcoholism, drug addiction, transportation, low edu. Level, literacy, decrease access to med. care, shelter, rehab)? @ -[No] Was there de-escalation of care discussed even if they declined (Discuss DNR or withdrawal of care, Hospice)? DNR status @ -[No] What co-morbidities impacted this encounter? (DM, HTN, Smoking, COPD, CAD, Cancer, CVA, ARF, Chemo, Hep., AIDS, mental health diagnosis, sleep apnea, morbid obesity)? @ -[None] Was patient admitted / discharged? Hospital course, mention meds given and route, prescriptions, significant lab abnormalities, going to OR and other pertinent info. @ -Patient did receive hydralazine for the elevated blood pressure was systolic 150. Cardene be given to the paramedics on their trip down to [facility]. Patient had no headache while in the emergency department. Patient did continue complaining of a little visual disturbance and some coordination problems with the right hand Undiagnosed new problem with uncertain prognosis? @ -[No] Drug Therapy requiring intensive monitoring for toxicity (Heparin, Nitro, Insulin, Cardizem)? @ -[No] Were any procedures done? @ -[No] Diagnosis/symptom? @ -Intraparenchymal hemorrhage Acute, or Chronic, or Acute on Chronic? @ -Acute Uncomplicated (without systemic symptoms) or Complicated (systemic symptoms)? @ -Complicated Side effects of treatment? @ -[No] Exacerbation, Progression, or Severe Exacerbation? @ -[No] Poses a threat to life or bodily function? How? (Chest pain, USA, IA, pneumonia, PE, COPD, DKA, ARF, appy, cholecystitis, CVA, Diverticulitis, Homicidal, Suicidal, threat to staff... and all critical care pts) @ -Yes progression of this could lead to - Lab Data Result diagrams: 05/23/23 11:19 05/23/23 11:19 Lab Results 05/23/23 05/23/23 05/23/23 Range/Units 11:19 11:19 11:19 WBC 5.6 (3.8-10.6) k/uL RBC 4.65 (4.30-5.90) m/uL Hgb 14.1 (13.0-17.5) gm/dL Hct 42.6 (39.0-53.0) % MCV 91.5 (80.0-100.0) fL MCH 30.4 (25.0-35.0) pg MCHC 33.2 (31.0-37.0) g/dL RDW 13.0 (11.5-15.5) % Plt Count 178 (150-450) k/uL MPV 7.9 Neutrophils % 63 % Lymphocytes % 23 % Monocytes % 6 % Eosinophils % 6 % Basophils % 0 % Neutrophils # 3.5 (1.3-7.7) k/uL Lymphocytes # 1.3 (1.0-4.8) k/uL Monocytes # 0.3 (0-1.0) k/uL Eosinophils # 0.3 (0-0.7) k/uL Basophils # 0.0 (0-0.2) k/uL PT 10.7 (9.0-12.0) sec INR 1.0 (<1.2) APTT 24.5 (22.0-30.0) sec Sodium 138 (137-145) mmol/L Potassium 4.2 (3.5-5.1) mmol/L Chloride 104 (98-107) mmol/L Carbon Dioxide 25 (22-30) mmol/L Anion Gap 9 mmol/L BUN 21 H (9-20) mg/dL Creatinine 1.50 H (0.66-1.25) mg/dL Est GFR (CKD-EPI)AfAm 49 (>60 ml/min/1.73 sqM) Est GFR (CKD-EPI)NonAf 42 (>60 ml/min/1.73 sqM) Glucose 120 H (74-99) mg/dL Calcium 9.1 (8.4-10.2) mg/dL Total Bilirubin 0.9 (0.2-1.3) mg/dL AST 20 (17-59) U/L ALT 15 (4-49) U/L Alkaline Phosphatase 82 (38-126) U/L Creatine Kinase 89 (55-170) U/L Troponin I (0.000-0.034) ng/mL Total Protein 7.4 (6.3-8.2) g/dL Albumin 4.1 (3.5-5.0) g/dL 05/23/23 Range/Units 11:19 WBC (3.8-10.6) k/uL RBC (4.30-5.90) m/uL Hgb (13.0-17.5) gm/dL Hct (39.0-53.0) % MCV (80.0-100.0) fL MCH (25.0-35.0) pg MCHC (31.0-37.0) g/dL RDW (11.5-15.5) % Plt Count (150-450) k/uL MPV Neutrophils % % Lymphocytes % % Monocytes % % Eosinophils % % Basophils % % Neutrophils # (1.3-7.7) k/uL Lymphocytes # (1.0-4.8) k/uL Monocytes # (0-1.0) k/uL Eosinophils # (0-0.7) k/uL Basophils # (0-0.2) k/uL PT (9.0-12.0) sec INR (<1.2) APTT (22.0-30.0) sec Sodium (137-145) mmol/L Potassium (3.5-5.1) mmol/L Chloride (98-107) mmol/L Carbon Dioxide (22-30) mmol/L Anion Gap mmol/L BUN (9-20) mg/dL Creatinine (0.66-1.25) mg/dL Est GFR (CKD-EPI)AfAm (>60 ml/min/1.73 sqM) Est GFR (CKD-EPI)NonAf (>60 ml/min/1.73 sqM) Glucose (74-99) mg/dL Calcium (8.4-10.2) mg/dL Total Bilirubin (0.2-1.3) mg/dL AST (17-59) U/L ALT (4-49) U/L Alkaline Phosphatase (38-126) U/L Creatine Kinase (55-170) U/L Troponin I <0.012 (0.000-0.034) ng/mL Total Protein (6.3-8.2) g/dL Albumin (3.5-5.0) g/dL Critical Care Time Critical Care Time: Yes Total Critical Care Time: 35 Disposition Clinical Impression: Intraparenchymal hemorrhage of brain Disposition: OTHER INSTITUTION NOT DEFINED Referrals: Tom Conde DO [Primary Care Provider] - 1-2 days Time of Disposition: 13:01 - Out of Hospital Transfer - Req. Specs Out of Hospital Transfer - Requested Specifics: Other Emergency Center ([facility])
[2023-05-23 11:28] LABS: Basophils % (A) 0 %; Eosinophils # (A) 0.3 k/uL (0-0.7); Eosinophils % (A) 6 %; HCT 42.6 % (39.0-53.0); HGB 14.1 gm/dL (13.0-17.5); Lymphocytes # (A) 1.3 k/uL (1.0-4.8); Lymphocytes % (A) 23 %; MCH 30.4 pg (25.0-35.0); MCHC 33.2 g/dL (31.0-37.0); MCV 91.5 fL (80.0-100.0); Mean Platelet Volume 7.9; Monocytes # (A) 0.3 k/uL (0-1.0); Monocytes % (A) 6 %; Neutrophils # (A) 3.5 k/uL (1.3-7.7); Neutrophils % (A) 63 %; Platelet Count 178 k/uL (150-450); RBC 4.65 m/uL (4.30-5.90); WBC 5.6 k/uL (3.8-10.6)
--- NOTE | 2023-05-23 11:41 | XR ---
EXAMINATION TYPE: XR chest 2V DATE OF EXAM: 05/23/2023 COMPARISON: 01/31/2023 TECHNIQUE: PA and lateral views submitted. HISTORY: Altered mental status FINDINGS: The lungs are clear and there is no pneumothorax, pleural effusion, or focal pneumonia. Heart size normal and no overt failure. Osseous structures demonstrate hypertrophic and degenerative changes of the spine. Calcified granuloma right upper lobe. Diffuse hyperinflation. Atherosclerotic change aorta and bilateral AC joint arthropathy. There is be a vascular stent in the upper abdomen. Eventration o f the left hemidiaphragm again noted lateral view demonstrates a right upper lobe mass. IMPRESSION: 1. COPD and chronic granulomatous disease with no definite acute process.. Persistent right upper lob e suspicious mass. 2. 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
[2023-05-23 11:50] VITALS: TEMP 98.3
[2023-05-23 11:50] LABS: ALT 15 U/L (4-49); AST 20 U/L (17-59); African American GFR (CKD) 49 (>60 ml/min/1.73 sqM); Albumin 4.1 g/dL (3.5-5.0); Alkaline Phosphatase 82 U/L (38-126); Anion Gap 9 mmol/L; Blood Urea Nitrogen 21 mg/dL (9-20); Calcium 9.1 mg/dL (8.4-10.2); Carbon Dioxide 25 mmol/L (22-30); Chloride 104 mmol/L (98-107); Creatine Kinase 89 U/L (55-170); Glucose 120 mg/dL (74-99); Non-African American GFR(CKD) 42 (>60 ml/min/1.73 sqM); Potassium 4.2 mmol/L (3.5-5.1); Sodium 138 mmol/L (137-145); Total Bilirubin 0.9 mg/dL (0.2-1.3); Total Protein 7.4 g/dL (6.3-8.2)
[2023-05-23 12:00] LABS: Partial Thromboplastin Time 24.5 sec (22.0-30.0); Prothrombin Time 10.7 sec (9.0-12.0)
[2023-05-23] MEDS ORDERED: hydrALAZINE HCL 20 MG/ML 1 ML VIAL IVP STA (12:09)
--- NOTE | 2023-05-23 12:24 | CT ---
EXAMINATION TYPE: CT brain wo con CT DLP: 1554.1 mGycm, Automated exposure control for dose reduction was used. DATE OF EXAM: 05/23/2023 12:14 PM COMPARISON: None. CLINICAL INDICATION:Male, 87 years old with history of Neuro deficit, acute, stroke suspected, Dizzin ess TECHNIQUE: Brain: Multiple axial CT images of the brain were obtained without IV contrast. Coronal and sagittal reformats reviewed. FINDINGS: Brain: Extra-axial spaces: No abnormal extra-axial fluid collections. Ventricular system: Within normal limits Cerebral parenchyma: Acute intraparenchymal hemorrhage with surrounding edema within the left occipit al lobe measuring 3.8 x 2.6 cm. There is some surrounding effacement of the peripheral sulci. The gra y-white junction is well differentiated. Cerebellum: Unremarkable. Mass effect: No evidence of midline shift. Intracranial vasculature: Atherosclerotic calcifications of the intracranial vessels. Soft tissues: Normal. Calvarium/osseous structures: No depressed skull fracture. Paranasal sinuses and mastoid air cells: Clear Visualized orbits: Bilateral aphakia IMPRESSION: Acute intraparenchymal hemorrhage within the left occipital lobe. No midline shift. Findings called to and discussed with Dr. Rose at 12:21 PM on 05/23/2023.
[2023-05-23] MEDS ORDERED: niCARdipine 20 MG in SODIUM CHLORIDE 0.9% 192 ML IV SCH (13:00)
--- NOTE | 2023-05-23 13:14 | CT ---
EXAMINATION TYPE: CT angio head neck CT DLP: 1554.1 mGycm, Automated exposure control for dose reduction was used. DATE OF EXAM: 05/23/2023 12:36 PM COMPARISON: 01/11/2023 CLINICAL INDICATION:Male, 87 years old with history of Neuro deficit, acute, stroke suspected, Dizzin ess TECHNIQUE: Axially acquired helical CT angiogram of the head and neck was obtained with contrast. Axi al images are supplemented with 3D reconstructions which [facility] NASCET criteria used. Contrast used:100 ml mL of Isovue 370 without and with IV Contrast, Oral contrast used: None. FINDINGS: CTA HEAD: No evidence of acute intracranial hemorrhage, mass effect, or midline shift. The ventricles, sulci, a nd cisterns are unremarkable. The visualized portions of the internal carotid arteries, middle cerebral arteries, anterior cerebral arteries, and posterior cerebral arteries are patent. Bilaterally aphakia. Atherosclerosis of the ca rotid siphons bilaterally. Intraparenchymal hemorrhage involving the left occipital lobe. No contrast blush to suggest active extravasation. The basilar and vertebral arteries are patent. CTA NECK: Right Carotid System: The common carotid and external carotid arteries are patent. There is less than 50 % stenosis at the carotid bifurcation secondary to calcified/noncalcified plaque. The rest of the internal carotid zaheer ry is patent. Left Carotid System: The common carotid artery and external carotid artery are patent. The carotid bifurcation demonstrate s no evidence of hemodynamically significant stenosis. The remaining portions of the internal carotid artery demonstrate normal size without significant narrowing. Left vertebral artery is patent. The right vertebral artery is occluded extending from its origin to There is a three-vessel aortic arch. The origins of the great vessels are patent. No evidence of hemo dynamically significant stenosis. Upper thorax: Right upper lung posterior aspect mass-like area measuring 3.5 x 1.5 cm. Moderate emphy sema changes are seen in the lung apices. IMPRESSION: 1. 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 2. Intracranial hemorrhage involving the left occipital lobe. As seen on same day CT. No evidence for active extravasation. 3. No evidence of dissection of the cervical internal carotid arteries. 4. 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 Left carotid bifurcation is patent. 5. No evidence of intracranial high-grade stenosis or intracranial aneurysm. 6. Right upper lung mass with increased metabolic activity compatible with neoplasm as seen on 023 PET.
[2023-05-23 13:24] VITALS: BP 142/73; PULSE 69
== END 2023-05-23 13:05 | disposition other institution (70) ==
LOC: EC 10:14
DX: I62.9 Nontraumatic intracranial hemorrhage, unspecified (principal); I10 Essential (primary) hypertension; Z87.891 Personal history of nicotine dependence; Z88.0 Allergy status to penicillin
CPT/HCPCS: 36415; 93005; 80053; 82550; 84484; 85025; 85610; 85730; 71046; 70496; 70450; 70498; 99291; 96374; 96375; J0360; Q9967

== ENCOUNTER → 2023-06-12 | Outpatient (CLI) | payer MEDICARE ==
--- NOTE | 2023-06-12 13:12 | CT ---
EXAMINATION TYPE: CT chest wo con DATE OF EXAM: 06/12/2023 COMPARISON: 01/31/2023. CTA abdomen and pelvis on 05/09/2023. HISTORY: MALIGNANT NEOPLASM OF UPPER LOBE. DLP 331.8. PRIOR IN PACS. AGUILA/DB. CT DLP: 331.8 mGycm. Automated Exposure Control for Dose Reduction was Utilized. TECHNIQUE: CT scan of the thorax is performed without IV contrast. FINDINGS: Mediastinum and Alesia: There is no axillary, mediastinal or hilar lymphadenopathy. There calcified rig ht hilar lymph nodes. Pleural and Pericardial spaces: There are no pleural or pericardial effusions. Upper Abdomen: Partially visualized aneurysm sac around the abdominal aorta is unchanged lungs visual ized portion. Cardiovascular: There is moderate vascular calcification throughout the thoracic aorta without eviden ce of aneurysmal dilation. Moderate coronary calcium is seen within the right coronary artery. Lung Parenchyma and Airways: There is severe upper lobe predominant centrilobular emphysema. Previous ly seen spiculated mass along the major fissure within the posterior aspect of the right upper lobe h as decreased in size since the previous examination and likely relates to treatment changes. This cur rently measures approximately 3.2 x 1.6 cm and previously measured 4.4 x 2.5 cm. Calcified granulomas are also seen within the right lower lobe. Bones: No fracture or aggressive osseous lesion. IMPRESSION: 1. Decreased size of the mass within the right upper lobe likely relates to posttreatment changes. Fo llow-up according to tumor protocol. 2. Severe upper lobe predominant centrilobular emphysema.
== END | disposition home or self-care (01) ==
LOC: RADCTMAIN 12:17
PROVIDERS: ATTEND Radiology Radiation Oncology
DX: C34.11 Malignant neoplasm of upper lobe, right bronchus or lung (principal); J43.2 Centrilobular emphysema; R91.8 Other nonspecific abnormal finding of lung field
CPT/HCPCS: 71250

== ENCOUNTER → 2023-06-28 | Outpatient (CLI) | payer MEDICARE | END | disposition home or self-care (01) | LOC: LABWHC1 07:33 | PROVIDERS: ATTEND Psychiatry & Neurology Neurology | DX: R56.9 Unspecified convulsions (principal) | CPT/HCPCS: 36415; 80235 ==

== ENCOUNTER → 2023-07-11 | Outpatient (CLI) | payer MEDICARE ==
--- NOTE | 2023-07-14 11:43 | MR ---
EXAMINATION TYPE: MR brain wo/w con DATE OF EXAM: 07/11/2023 COMPARISON: No prior MRIs available. Comparison is made with a CT of 05/23/2023 HISTORY: History of stroke CONTRAST: Performed utilizing 7.5 mL intravenous Gadavist gadolinium contrast. TECHNIQUE: Multiplanar, multiecho imaging on a 3.0 Lashawn magnet is performed through the brain. Stud y is performed within 24 hours of arrival to the hospital. The craniovertebral junction is normal. The pituitary is normal. There is a T1 hyperintense collection in the posterior left occipital lobe. This is hyperintense on d iffusion with surrounding hypointensity and hyperintense on T2-weighted sequences. This area correspo nds to the hemorrhage on the CT examination. Current measurements are 3.3 cm AP by 2.2 cm transverse by 3.2 cm in craniocaudal dimension. Diffusion-weighted imaging is performed. No abnormal hyperintensity is present to suggest an acute i ntracranial infarct or acute ischemic change. There are scattered punctate areas of hyperintensity on T2 and Inversion Recovery weighted sequences which are non-specific but can be related to microvascular ischemic changes. Ventricles and sulci are appropriate for the patient age. No temporal lobe dilatation is evident. No hydrocephalus is evident. No abnormal enhancement is evident. IMPRESSION: 1. Early subacute hemorrhage left occipital lobe. No expansion from the April CT exam is evident. 2. No abnormal enhancing masses identified.
== END | disposition home or self-care (01) ==
LOC: RADMRIMAIN 14:23
PROVIDERS: ATTEND Psychiatry & Neurology Neurology
DX: I61.8 Other nontraumatic intracerebral hemorrhage (principal); Z86.73 Personal history of transient ischemic attack (TIA), and cerebral infarction without residual deficits
CPT/HCPCS: 70553; A9585

== ENCOUNTER → 2023-10-10 | Outpatient (CLI) | payer MEDICARE ==
--- NOTE | 2023-10-10 14:06 | CT ---
EXAMINATION TYPE: CT chest wo con DATE OF EXAM: 10/10/2023 COMPARISON: Most recent prior chest CT June 12, 2023 and older studies HISTORY: lung ca CT DLP: 515 mGycm. Automated Exposure Control for Dose Reduction was Utilized. TECHNIQUE: CT scan of the thorax is performed without IV contrast. FINDINGS: LUNGS: Moderate to advanced underlying emphysematous change is redemonstrated. There is persistent donis spicious 3.3 x 1.4 cm spiculated mass in the posterior right lower lobe axial image 27. This is gross ly similar to most recent prior CT. There are some small calcified peripheral nodules are granulomas in the periphery of the bilateral lower lobes. No new concerning masses. MEDIASTINUM: Lack of IV contrast is noted to limit evaluation for mediastinal and especially hilar ad enopathy. There are no definitive greater than 1 cm noncalcified mediastinal lymph nodes. Prominent c alcified right hilar lymph nodes redemonstrated. No cardiomegaly or pericardial effusion is seen. Mi ld to moderate coronary artery calcification is redemonstrated. OTHER: Stent graft in the abdominal aorta is partially images through kotlik partially imaged AAA. Ch olecystectomy clips are redemonstrated. IMPRESSION: Moderate to advanced emphysematous changes is redemonstrated. Stable 3.3 x 1.4 cm spicula cristela right upper lobe mass from most recent prior CT. No new suspicious mass or thoracic adenopathy id entified.
== END | disposition home or self-care (01) ==
LOC: RADCTMAIN 12:39
PROVIDERS: ATTEND Radiology Radiation Oncology
DX: J43.9 Emphysema, unspecified (principal); R91.8 Other nonspecific abnormal finding of lung field; C34.11 Malignant neoplasm of upper lobe, right bronchus or lung; Z87.891 Personal history of nicotine dependence
CPT/HCPCS: 71250

== ENCOUNTER 2024-02-03 14:57 | Emergency (ER) | payer MEDICARE ==
[2024-02-03 15:04] VITALS: TEMP 97.8
--- NOTE | 2024-02-03 15:19 | ED ---
General Adult HPI - General Chief complaint: Extremity Injury, Lower Stated complaint: leg injury Time Seen by Provider: 02/03/24 15:06 Source: patient, family, RN notes reviewed Mode of arrival: wheelchair Limitations: no limitations - History of Present Illness Initial comments: 88 year old male presents to the emergency department for evaluation of left calf injury. Patient states that he was using his brush hog when the pin came loose causing a piece of metal to fly up and hit him in the calf. He states that since then he has not been able to ambulate on the left leg. He notes that his calf felt "tight" after the injury. He did place ice on it. He states that he feels it is less tight that when it initially happened. He notes that it is pain ful to squeeze. Denies blood thinners. Up to date on tetanus vaccine. - Related Data Home Medications Medication Instructions Recorded Confirmed Celecoxib [CeleBREX] 200 mg PO DAILY 01/29/23 05/23/23 Previous Rx's Medication Instructions Recorded Famotidine [Pepcid] 20 mg PO DAILY #30 tablet 03/20/23 Allergies Allergy/AdvReac Type Severity Reaction Status Date / Time Penicillins Allergy Rash/Hives-50-60 Verified 05/23/23 11:19 yrs ago, never had since then. Review of Systems ROS Statement: Those systems with pertinent positive or pertinent negative responses have been documented in the HPI. ROS Other: All systems not noted in ROS Statement are negative. Past Medical History Past Medical History: Hearing Disorder / Deafness, Hypertension, Prostate Disorder Additional Past Medical History / Comment(s): SOB with exertion. Hard of hearing. Varicose veins. History of Any Multi-Drug Resistant Organisms: None Reported Past Surgical History: Prostate Surgery Additional Past Surgical History / Comment(s): "Surgery to cut back rib" aortic stent placed 2022. d Past Anesthesia/Blood Transfusion Reactions: No Reported Reaction Additional Past Anesthesia/Blood Transfusion Reaction / Comment(s): no hx blood transfusion Past Psychological History: No Psychological Hx Reported Smoking Status: Former smoker Past Alcohol Use History: None Reported Past Drug Use History: None Reported - Past Family History Sister(s) Family Medical History: Cancer Brother(s) Family Medical History: Cancer General Exam Limitations: no limitations General appearance: alert, in no apparent distress Head exam: Present: atraumatic, normocephalic, normal inspection Eye exam: Present: normal appearance, PERRL, EOMI. Absent: scleral icterus, conjunctival injection, periorbital swelling Respiratory exam: Present: normal lung sounds bilaterally. Absent: respiratory distress, wheezes, rales, rhonchi, stridor Cardiovascular Exam: Present: regular rate, normal rhythm, normal heart sounds. Absent: systolic murmur, diastolic murmur, rubs, gallop, clicks Extremities exam: Present: full ROM, tenderness (ttp to posterior calf), normal capillary refill, other (swelling and ttp of the left calf muscle, distal pulses 2+). Absent: normal inspection, pedal edema, joint swelling Neurological exam: Present: alert, oriented X3 Psychiatric exam: Present: normal affect, normal mood Skin exam: Present: warm, dry, normal color, abrasion (abrasion to posterior left calf). Absent: intact, rash Course Vital Signs 02/03/24 02/03/24 14:59 16:43 Temperature 97.8 F Pulse Rate 82 78 Respiratory 20 18 Rate Blood Pressure 154/66 142/79 O2 Sat by Pulse 98 97 Oximetry Medical Decision Making - Medical Decision Making Was pt. sent in by a medical professional or institution (, PA, TOOL TURRET LATHE SET UP OPERATOR, urgent care, hospital, or senior care...) When possible be specific @ -No Did you speak to anyone other than the patient for history (EMS, parent, family, police, friend...)? What history was obtained from this source @ -No Did you review nursing and triage notes (agree or disagree)? Why? @ -I reviewed and agree with nursing and triage notes Were old charts reviewed (outside hosp., previous admission, EMS record, old EKG, old radiological studies, urgent care reports/EKG's, senior care records)? Report findings @ -No old charts were reviewed Differential Diagnosis (chest pain, altered mental status, abdominal pain women, abdominal pain men, vaginal bleeding, weakness, fever, dyspnea, syncope, headache, dizziness, GI bleed, back pain, seizure, CVA, palpatations, mental health, musculoskeletal)? @ -Differential Musculoskeletal Muscular strain, contusion, ligament sprain, fracture, arthritis, septic arthritis, bursitis, cellulitis, muscle spasm, nerve compression, DVT, arterial occlusion, herpes zoster, electrolyte abnormality, tumor.... This is not meant to be in all inclusive list EKG interpreted by me (3pts min.). @ -None X-rays interpreted by me (1pt min.). @ -XR left tib fib shows no evidence of acute fracture or foreign body CT interpreted by me (1pt min.). @ -None done U/S interpreted by me (1pt. min.). @ -None done What testing was considered but not performed or refused? (CT, X-rays, U/S, labs)? Why? @ -None What meds were considered but not given or refused? Why? @ -None Did you discuss the management of the patient with other professionals (professionals i.e. Dr., PA, TOOL TURRET LATHE SET UP OPERATOR, lab, RT, psych nurse, social and human services assistant, stopper maker helper, teacher, field health officer, case hardener)? Give summary @ -No Was smoking cessation discussed for >3mins.? @ -No Was critical care preformed (if so, how long)? @ -No Were there social determinants of health that impacted care today? How? (Homelessness, low income, unemployed, alcoholism, drug addiction, transportation, low edu. Level, literacy, decrease access to med. care, longterm, rehab)? @ -No Was there de-escalation of care discussed even if they declined (Discuss DNR or withdrawal of care, Hospice)? DNR status @ -No What co-morbidities impacted this encounter? (DM, HTN, Smoking, COPD, CAD, Cancer, CVA, ARF, Chemo, Hep., AIDS, mental health diagnosis, sleep apnea, morbid obesity)? @ -None Was patient admitted / discharged? Hospital course, mention meds given and route, prescriptions, significant lab abnormalities, going to OR and other pertinent info. @ -Discharged. Patient presented to the emergency department for evaluation of left calf injury. XR obtained which shows no evidence of acute fracture or dislocation. Distal neurovascular status intact. Patient given dose of toradol in ED which provided some pain relief. Dev wrap applied. Advised to rest, ice, elevate, take tylenol. Patient understanding and agreeable with plan. Patient stable at time of discharge. Case discussed with Dr. Rhodes Undiagnosed new problem with uncertain prognosis? @ -No Drug Therapy requiring intensive monitoring for toxicity (Heparin, Nitro, Insulin, Cardizem)? @ -No Were any procedures done? @ -No Diagnosis/symptom? @ -Left calf contusion Acute, or Chronic, or Acute on Chronic? @ -acute Uncomplicated (without systemic symptoms) or Complicated (systemic symptoms)? @ -uncomplicated Side effects of treatment? @ -No Exacerbation, Progression, or Severe Exacerbation? @ -No Poses a threat to life or bodily function? How? (Chest pain, [place], [place], pneumonia, PE, COPD, DKA, ARF, appy, cholecystitis, CVA, Diverticulitis, Homicidal, Suicidal, threat to staff... and all critical care pts) @ -No Disposition Clinical Impression: Contusion of calf Disposition: HOME SELF-CARE Condition: Stable Instructions (If sedation given, give patient instructions): Contusion in Adults (ED) Additional Instructions: Please rest, ice, elevate the leg. Utilize Tylenol for pain. Return to the emergency department for new or worsening symptoms. Is patient prescribed a controlled substance at d/c from ED?: No Referrals: Tom Conde DO [Primary Care Provider] - 1-2 days
--- NOTE | 2024-02-03 15:46 | XR ---
EXAMINATION TYPE: XR tibia fibula LT DATE OF EXAM: 02/03/2024 CLINICAL HISTORY: pain TECHNIQUE: AP and lateral images of the left tibia and fibula are obtained. COMPARISON: None. FINDINGS: There is no acute fracture/dislocation evident. The joint spaces appear within normal mera its. The overlying soft tissue appears unremarkable. IMPRESSION: There is no acute fracture or dislocation seen. ICD 10 NO FRACTURE, INITIAL EVALUATION
[2024-02-03] MEDS: KETOROLAC 15 MG/ML 1 ML VIAL IM STA (15:54)
[2024-02-03 17:14] VITALS: BP 142/79; PULSE 78; RESP 18
== END 2024-02-03 16:44 | disposition home or self-care (01) ==
LOC: EC 14:57
DX: S80.12XA Contusion of left lower leg, initial encounter (principal); Z88.0 Allergy status to penicillin; Z87.891 Personal history of nicotine dependence; W22.8XXA Striking against or struck by other objects, initial encounter
CPT/HCPCS: 73590; 99283; 96372; J1885

== ENCOUNTER → 2024-02-27 | Outpatient (CLI) | payer MEDICARE ==
--- NOTE | 2024-02-27 14:24 | CT ---
EXAMINATION TYPE: CT brain wo con DATE OF EXAM: 02/27/2024 COMPARISON: 05/23/2023 HISTORY: RT SIDE HEADACHE CT DLP: 1176.7 mGycm Automated exposure control for dose reduction was used. FINDINGS: The ventricles, basal cisterns and sulci over the convexities are moderately enlarged consistent with moderate generalized atrophy. There is an area of encephalomalacia involving the left occipital lobe in an area where there is prev ious acute parenchymal hemorrhage on the prior study. There is no acute intra or extra-axial hemorrha ge currently. There is no mass effect or shift of the midline structures. The posterior fossa is grossly normal. Intraorbital contents appear normal symmetric. Visualized paranasal sinuses and mastoid air cells are well aerated. The calvarium is intact. IMPRESSION: 1. No acute bleed or mass effect. 2. Resolved acute hemorrhage in the left occipital lobe. Encephalomalacia in the left occipital lobe in the area of the previous acute left occipital hemorrhage.
== END | disposition home or self-care (01) ==
LOC: RADCTMAIN 11:58
PROVIDERS: ATTEND Family Medicine
DX: G93.89 Other specified disorders of brain (principal); G43.909 Migraine, unspecified, not intractable, without status migrainosus
CPT/HCPCS: 70450

== ENCOUNTER → 2024-04-10 | Outpatient (CLI) | payer MEDICARE ==
--- NOTE | 2024-04-10 15:29 | CT ---
EXAMINATION TYPE: CT chest wo con DATE OF EXAM: 04/10/2024 COMPARISON: 10/10/2023. HISTORY: f/u lung ca CT DLP: 369.[address] of the chest was performed with lung and mediastinal window settings submitted. The la ck of contrast limits evaluation of the vascular, mediastinal and parenchymal structures including th e upper abdomen. LUNGS: Right upper lobe spiculated mass is redemonstrated and measures 3.1 x 1.8 cm versus 3.2 x 1.4 cm previously. There is pleural extension noted with pleural thickening seen unchanged from prior ailin dy. No additional masses are present at this time. Calcified granulomas seen within the right lower l obe. Moderately advanced emphysematous changes persist. MEDIASTINUM/YASMIN: Descending thoracic aortic aneurysm measuring 3.4 cm AP dimension. Descending thora cic aorta is of normal caliber at 3.7 cm. The heart is not enlarged. No evidence for mediastinal mas s. No lymph nodes greater than 1cm. Calcified hilar lymph nodes. UPPER ABDOMEN: No significant abnormality is seen. OTHER: No significant other abnormality. IMPRESSION: 1. Right upper lobe spiculated mass is redemonstrated and measures 3.1 x 1.8 cm versus 3.2 x 1.4 cm previously. There is pleural extension noted with pleural thickening seen unchanged from prior study. 2. Descending thoracic aortic aneurysm measuring 3.4 cm AP dimension. IV
== END | disposition home or self-care (01) ==
LOC: RADCTMAIN 14:49
PROVIDERS: ATTEND Radiology Radiation Oncology
DX: C34.11 Malignant neoplasm of upper lobe, right bronchus or lung (principal); I71.23 Aneurysm of the descending thoracic aorta, without rupture; Z87.891 Personal history of nicotine dependence
CPT/HCPCS: 71250

== ENCOUNTER → 2024-10-07 | Outpatient (CLI) | payer MEDICARE ==
--- NOTE | 2024-10-07 16:52 | CT ---
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 TECHNIQUE: CT scan of the thorax is performed without IV contrast. CT DLP: 336.[address] CTDI: mGy Automated exposure control for dose reduction was used. FINDINGS: There are marked emphysematous changes. The focal thickening along the major fissure in the right upper lobe is stable in size. There is evidence for prior granulomatous disease exposure with multiple calcified granulomas in the right lower lobe and multiple calcified right hilar lymph nodes. There are few stable micronodules in the left lung. There is no airspace consolidation There is no pleural effusion or pneumothorax. There is no mediastinal, hilar or axillary adenopathy. Limited scanning through the upper abdomen reveals a stent in the aorta at the thoracolumbar abdomina l junction. No focal osseous lesions are seen. IMPRESSION: 1. Stable pleural-based density along the major fissure in the right upper lobe. 2. Prior granulomatous disease exposure. 3. Marked emphysematous changes in the liver 4 no acute cardiopulmonary disease. [facility], Workstation: [id number], 10/07/2024 4:49 PM
== END | disposition home or self-care (01) ==
LOC: RADCTMAIN 12:24
PROVIDERS: ATTEND Radiology Radiation Oncology
DX: C34.11 Malignant neoplasm of upper lobe, right bronchus or lung (principal); J43.9 Emphysema, unspecified; Z87.891 Personal history of nicotine dependence
CPT/HCPCS: 71250

== ENCOUNTER → 2025-04-19 | Outpatient (CLI) | payer MEDICARE ==
--- NOTE | 2025-04-19 13:24 | CT ---
EXAMINATION TYPE: CT chest wo con CT DLP: 463 mGycm, Automated exposure control for dose reduction was used. DATE OF EXAM: 04/19/2025 1:00 PM COMPARISON: CT chest 10/07/2024, 04/10/2024 . CLINICAL INDICATION:Male, 89 years old with history of C34.11 MALIGNANT NEOPLASM OF UPPER LOBE, RIGHT BRO; [facility], LUNG CA TECHNIQUE: Multiple axial images were obtained through the chest. Sagittal and coronal reformats were created for review. Contrast used: mL of (None if empty) Oral contrast used: (None if empty) FINDINGS: LUNGS/ PLEURA: The pleural-based density along the major fissure in the right upper lobe is slightly increased in size when allowing for difference in technique compared to the most recent prior CT in r eference measuring approximately 2.4 x 1.4 cm. This retrospectively measured approximately 2.1 x 1.0 cm. Redemonstrated scattered calcified granulomas in the bilateral lungs. Centrilobular emphysema is present most pronounced in the upper lobes. No focal consolidation, pleural effusion or pneumothorax. AIRWAY: Patent and unremarkable. HEART: Size within normal limits.Coronary artery atherosclerosis is present. MEDIASTINUM: Similar calcified lymph nodes are seen in the right hilum. VASCULATURE: No aortic aneurysm. MUSCULOSKELETAL: No acute osseous abnormalities SOFT TISSUES/LYMPH NODES: Unremarkable. LOWER NECK: No significant findings. UPPER ABDOMEN: Partially visualized aortic vascular stent. Cholecystectomy clips. IMPRESSION: There is slight increase in size of a pleural-based density along the major fissure the right upper l obe when compared to the most recent CT in reference. This is suspicious for residual/recurrent disea se given the slight interval changes. Consider PET/CT follow-up to exclude neoplastic process. [facility], , 04/19/2025 1:22 PM
== END | disposition home or self-care (01) ==
LOC: RADCTMAIN 12:41
PROVIDERS: ATTEND Radiology Radiation Oncology
DX: C34.11 Malignant neoplasm of upper lobe, right bronchus or lung (principal); J98.4 Other disorders of lung
CPT/HCPCS: 71250